=== PATIENT | female | born 1950 | race Two or more races ===

== ENCOUNTER 2023-09-07 10:13 | Outpatient (CLI) | payer MEDICARE, OTHER | END 2023-09-07 23:59 | disposition home or self-care (01) | LOC: MSC 10:13 | PROVIDERS: ATTEND Internal Medicine | DX: I25.10 Atherosclerotic heart disease of native coronary artery without angina pectoris (principal); I10 Essential (primary) hypertension; Z95.1 Presence of aortocoronary bypass graft; Z95.5 Presence of coronary angioplasty implant and graft; Z72.0 Tobacco use; Z71.6 Tobacco abuse counseling; R06.02 Shortness of breath; E11.9 Type 2 diabetes mellitus without complications; Z79.84 Long term (current) use of oral hypoglycemic drugs; I73.9 Peripheral vascular disease, unspecified; Z98.62 Peripheral vascular angioplasty status; G62.9 Polyneuropathy, unspecified; G89.29 Other chronic pain; M54.9 Dorsalgia, unspecified ==